=== PATIENT | male | born 1990 ===

== ENCOUNTER 2021-03-07 10:21 | Outpatient (REF) | payer MEDICAID, SELFPAY ==
[2021-03-08 10:10] LABS: ALT 27 U/L (16-63); AST 14 U/L (15-37); Albumin 4.2 g/dL (3.4-5.0); Alkaline Phosphatase 55 U/L (46-116); BUN 15 mg/dL (7-18); Bilirubin, Total 0.7 mg/dL (0.2-1.0); Calcium 9.1 mg/dL (8.5-10.1); Calculated LDL 67 mg/dL (<100); Chloride 106 mmol/L (98-107); Cholesterol 127 mg/dL (<200); Glucose 56 mg/dL (74-106); HDL Cholesterol 41 mg/dL (40-60); Potassium 3.9 mmol/L (3.5-5.1); Sodium 144 mmol/L (136-145); Total Protein 7.3 g/dL (6.4-8.2); Triglyceride 95 mg/dL (<150)
[2021-03-09 10:45] LABS: HIV-1/2 Ag & Ab Screen Negative (Negative); Syphilis Serology (RPR) Negative (Negative)
[2021-03-09 11:00] LABS: Hepatitis C Ab w Rflx HCV PCR Negative (Negative)
[2021-03-09 12:47] LABS: Chlamydia Result Negative (Negative); GC Result Negative (Negative)
[2021-03-10 02:28] LABS: Chlamydia amplified RNA Negative (Negative); N gonorrhoeae amplified RNA Negative (Negative); Source THROAT
== END 2021-03-07 10:22 | disposition home or self-care (01) ==
LOC: NCHCN 10:21
PROVIDERS: PCP Nurse Practitioner Family; Visit Provider Nurse Practitioner Family
DX: Z13.220 Encounter for screening for lipoid disorders (principal); Z11.59 Encounter for screening for other viral diseases; Z11.3 Encounter for screening for infections with a predominantly sexual mode of transmission; Z11.4 Encounter for screening for human immunodeficiency virus [HIV]; Z13.228 Encounter for screening for other metabolic disorders
CPT/HCPCS: 80053; 80061; 86803; 87389; 87491; 87591; 86592

== ENCOUNTER 2022-06-26 18:38 | Outpatient (REF) | payer MEDICAID, SELFPAY ==
[2022-06-26 14:17] LABS: HCT 43.9 % (40.0-50.0); HGB 15.3 g/dL (13.5-17.5); MCH 30.3 pg (27.0-33.0); MCHC 34.9 % (32.0-36.0); MCV 87 fL (80-95); MPV 10.3 fL (8.0-11.0); Platelet Count 242 10^3/uL (130-400); RBC 5.05 10^6/uL (4.36-5.78); RDW 12.1 % (11.8-14.1); RDW-SD 38.8 fL; WBC 4.68 10^3/uL (4.4-10.8)
[2022-06-26 14:37] LABS: TSH (W/Ref FT4) 2.79 uIU/mL (0.36-3.74)
[2022-06-27 10:23] LABS: Lyme Ab w Rflx to Lyme Confirm Negative (Negative)
[2022-06-28 17:44] LABS: Anaplasma phagocytophilum Negative (Negative); B. miyamotoi PCR Negative (Negative); Babesia divergens/MO-1 Negative (Negative); Babesia duncani Negative (Negative); Babesia microti Negative (Negative); Ehrlichia chaffeensis Negative (Negative); Ehrlichia ewingii/canis Negative (Negative); Ehrlichia muris eauclairensis Negative (Negative)
== END 2022-06-26 18:39 | disposition home or self-care (01) ==
LOC: NCHCN 18:38
PROVIDERS: PCP Nurse Practitioner Family; Visit Provider Nurse Practitioner Family
DX: R53.83 Other fatigue (principal)
CPT/HCPCS: 85027; 87798; 84443; 86618